=== PATIENT | female | born 1985 | race Caucasian/White ===

== ENCOUNTER 2019-08-03 21:46 | Inpatient (IN) ==
[2019-08-03] MEDS ORDERED: Ondansetron ODT 4 MG TAB.RAPDIS SL ONE (22:17)
[2019-08-03] MEDS ORDERED: Ipratropium/Albuterol Neb 3 ML IH ONE ×2 (22:18→22:43)
[2019-08-03 22:33] LABS: Bilirubin,Urine Small (Negative); Blood,Urine Trace-intact (Negative); Clarity,Urine Clear (Clear); Color,Urine Yellow (Yellow); Glucose,Urine (UA) Normal (Normal); Ketones,Urine Trace mg/dL (Negative); Leukocyte Esterase,Urine Negative (Negative); Nitrite,Urine Negative (Negative); PH,Urine 6.5 pH Units (5.0-8.0); Protein,Urine 100 mg/dL (Neg-Trace); Specific Gravity,Urine 1.015 (1.010-1.025); Urobilinogen,Urine Normal (Normal)
[2019-08-03 22:41] LABS: Bacteria,Urine None Seen per hpf (None-Few); RBC,Urine 0-3 per hpf (0-3); Squamous Epithelial Cell,Urine Few per lpf (None-Few); WBC,Urine 0-3 per hpf (0-3)
[2019-08-03] MEDS ORDERED: cefTRIAXone 1,000 MG in Water for inj. (sterile) 10 ML IVP ONE (22:43)
[2019-08-03] MEDS ORDERED: Azithromycin 250 MG TABLET PO ONE (22:43)
[2019-08-03 23:08] LABS: Basophils % 0.3 %; Eosinophils # 0.1 K/mcL (0.0-0.6); Eosinophils % 0.7 %; Hematocrit 36.4 % (35.3-44.9); Hemoglobin 12.7 g/dL (11.5-15.4); Immature Granulocytes % 0.5 % (0-4); Lymphocytes # 1.6 K/mcL (0.6-4.6); Lymphocytes % 16.6 %; Mean Corpuscular HGB Conc 34.9 g/dL (31.6-35.5); Mean Corpuscular Hemoglobin 31.9 pg (28.0-33.3); Mean Corpuscular Volume 91.5 fL (83.0-100.0); Mean Platelet Volume 10.4 fL (9.4-12.4); Monocytes # 0.8 K/mcL (0.0-1.3); Monocytes % 7.9 %; Neutrophils # 7.2 K/mcL (1.6-8.9); Platelet Count 242 K/mcL (140-400); Red Blood Count 3.98 M/mcL (3.82-4.97); Red Cell Distribution Width 12.2 % (11.5-14.5); White Blood Count 9.8 K/mcL (4.3-11.1)
[2019-08-03] MEDS: 0.9 % Sodium Chloride 1,000 ML IVC SCH (23:11)
[2019-08-03 23:21] LABS: VBG HCO3 29 mEq/L (21-27); VBG PCO2 43 mmHg (41-51); VBG PH 7.43 pH Units (7.32-7.42); VBG PO2 38 mmHg (25-50)
[2019-08-03 23:25] LABS: Albumin 4.2 g/dL (3.5-5.7); Albumin/Globulin Ratio 1.2 (1.1-2.2); Bilirubin,Direct 0.1 mg/dL (0.0-0.2); Bilirubin,Indirect 0.5 mg/dL (0.0-1.0); Bilirubin,Total 0.6 mg/dL (0.3-1.0); Globulin 3.6 g/dL (2.4-3.5); Total Protein 7.8 g/dL (6.4-8.9)
[2019-08-03 23:26] LABS: BUN/Creatinine Ratio 15 (6-26); Blood Urea Nitrogen 11 mg/dL (6-20); Carbon Dioxide 28 mEq/L (23-29); Chloride 93 mEq/L (98-107); Glucose 115 mg/dL (70-105); Osmolality,Calculated 272 (280-300); Potassium 2.9 mEq/L (3.5-5.1); Sodium 131 mEq/L (136-145); eGFR For African Americans > 60 (> 60); eGFR For Non-African Americans > 60 (> 60)
[2019-08-03] MEDS ORDERED: Potassium Effervescent 25 MEQ TABLET.EFF PO ONE (23:28)
[2019-08-04] MEDS: 0.9 % Sodium Chloride 1,000 ML IVC SCH ×3 (00:05→05:16)
[2019-08-04] MEDS ORDERED: Naloxone 0.4 MG/ML INJ IVP PRN (00:49)
[2019-08-04] MEDS ORDERED: Mag Hydrox/Al Hydrox/Simeth 30 ML UDC PO PRN (00:49)
[2019-08-04] MEDS: Venlafaxine XR (24 HR) 150 MG CAP.ER.24H PO SCH ×2 (01:08→21:14)
[2019-08-04] MEDS: Ipratropium/Albuterol Neb 3 ML IH SCH ×6 (03:24→23:45)
[2019-08-04] MEDS: *HR* Enoxaparin 40 MG/0.4 ML SYRINGE SQ SCH (04:02)
[2019-08-04] MEDS: GuaiFENesin Liq 200 MG/10 ML UDC PO SCH ×3 (04:02→21:14)
[2019-08-04] MEDS: Benzonatate 100 MG CAPSULE PO SCH ×3 (04:02→21:14)
[2019-08-04 05:19] LABS: Amphetamine Screen,Urine Negative ng/mL (Cutoff=1000); Barbiturate Screen,Urine Negative ng/mL (Cutoff=200); Benzodiazepines Screen,Urine Negative ng/mL (Cutoff=200); Cannabinoid Screen,Urine Negative ng/mL (Cutoff = 50); Cocaine Screen,Urine Negative ng/mL (Cutoff= 300); Opiate Screen,Urine Negative ng/mL (Cutoff=300); Phencyclidine Screen,Urine Negative ng/mL (Cutoff=25)
[2019-08-04 07:35] LABS: Alanine Aminotransferase 22 Units/L (7-52); Albumin 3.4 g/dL (3.5-5.7); Albumin/Globulin Ratio 1.2 (1.1-2.2); Alkaline Phosphatase 73 Units/L (34-104); Aspartate Amino Transferase 20 Units/L (13-39); BUN/Creatinine Ratio 12 (6-26); Bilirubin,Total 0.4 mg/dL (0.3-1.0); Blood Urea Nitrogen 7 mg/dL (6-20); Calcium 7.6 mg/dL (8.6-10.3); Carbon Dioxide 27 mEq/L (23-29); Chloride 103 mEq/L (98-107); Globulin 2.8 g/dL (2.4-3.5); Glucose 108 mg/dL (70-105); Magnesium 1.9 mg/dL (1.6-2.6); Osmolality,Calculated 279 (280-300); Potassium 3.4 mEq/L (3.5-5.1); Sodium 135 mEq/L (136-145); Total Protein 6.2 g/dL (6.4-8.9); eGFR For African Americans > 60 (> 60); eGFR For Non-African Americans > 60 (> 60)
[2019-08-04 08:04] LABS: Basophils % 0.3 %; Eosinophils % 0.4 %; Hematocrit 30.9 % (35.3-44.9); Hemoglobin 10.6 g/dL (11.5-15.4); Immature Granulocytes % 0.3 % (0-4); Lymphocytes # 0.9 K/mcL (0.6-4.6); Lymphocytes % 13.5 %; Mean Corpuscular HGB Conc 34.3 g/dL (31.6-35.5); Mean Corpuscular Volume 93.4 fL (83.0-100.0); Mean Platelet Volume 10.9 fL (9.4-12.4); Monocytes # 0.6 K/mcL (0.0-1.3); Monocytes % 8.1 %; Neutrophils # 5.3 K/mcL (1.6-8.9); Platelet Count 208 K/mcL (140-400); Red Blood Count 3.31 M/mcL (3.82-4.97); Red Cell Distribution Width 12.7 % (11.5-14.5); Segmented Neutrophils % 77.4 %; White Blood Count 6.9 K/mcL (4.3-11.1)
[2019-08-04] MEDS: Acetaminophen 325 MG TABLET PO PRN ×2 (09:10→19:31)
[2019-08-04] MEDS ORDERED: Isovue-370 500 ML BOTTLE IVP ONE (10:46)
[2019-08-04] MEDS: 0.9 % Sodium Chloride w KCl 20 MEQ/1,000 ML MLS IVC SCH ×2 (11:30→21:13)
[2019-08-04] MEDS ORDERED: cefTRIAXone 1,000 MG in 0.9 % Sodium Chloride Mini Bag 100 ML IVPB SCH (15:00)
[2019-08-04] MEDS ORDERED: Azithromycin 250 MG TABLET PO SCH (15:00)
[2019-08-04] MEDS ORDERED: cefTRIAXone 1,000 MG in Water for inj. (sterile) 10 ML IVPB SCH (16:00)
[2019-08-04] MEDS ORDERED: Ipratropium/Albuterol Neb 3 ML IH SCH (16:00)
[2019-08-04] MEDS: cefTRIAXone 1,000 MG in Water for inj. (sterile) 10 ML IVP SCH (16:44)
[2019-08-04] MEDS: Azithromycin 500 MG in 0.9 % Sodium Chloride 250 ML IVPB SCH (21:13)
[2019-08-04] MEDS: Ondansetron 4 MG/2 ML VIAL IVP PRN (23:35)
[2019-08-05] MEDS: *HR* Enoxaparin 40 MG/0.4 ML SYRINGE SQ SCH (04:42)
[2019-08-05] MEDS: Ipratropium/Albuterol Neb 3 ML IH SCH ×5 (04:54→20:10)
[2019-08-05] MEDS: 0.9 % Sodium Chloride w KCl 20 MEQ/1,000 ML MLS IVC SCH ×2 (07:23→22:15)
[2019-08-05] MEDS: Benzonatate 100 MG CAPSULE PO SCH ×3 (07:27→21:11)
[2019-08-05] MEDS: GuaiFENesin Liq 200 MG/10 ML UDC PO SCH ×3 (07:27→21:10)
[2019-08-05 11:10] LABS: Basophils % 0.2 %; Eosinophils # 0.2 K/mcL (0.0-0.6); Eosinophils % 2.5 %; Hematocrit 30.4 % (35.3-44.9); Hemoglobin 10.1 g/dL (11.5-15.4); Immature Granulocytes % 0.9 % (0-4); Lymphocytes # 1.2 K/mcL (0.6-4.6); Lymphocytes % 18.1 %; Mean Corpuscular HGB Conc 33.2 g/dL (31.6-35.5); Mean Corpuscular Hemoglobin 31.9 pg (28.0-33.3); Mean Corpuscular Volume 95.9 fL (83.0-100.0); Mean Platelet Volume 10.3 fL (9.4-12.4); Monocytes # 0.4 K/mcL (0.0-1.3); Monocytes % 6.5 %; Neutrophils # 4.6 K/mcL (1.6-8.9); Platelet Count 220 K/mcL (140-400); Red Blood Count 3.17 M/mcL (3.82-4.97); Red Cell Distribution Width 13.2 % (11.5-14.5); Segmented Neutrophils % 71.8 %; White Blood Count 6.3 K/mcL (4.3-11.1)
[2019-08-05 11:43] LABS: BUN/Creatinine Ratio 4 (6-26); Blood Urea Nitrogen 2 mg/dL (6-20); Calcium 8.1 mg/dL (8.6-10.3); Carbon Dioxide 27 mEq/L (23-29); Chloride 108 mEq/L (98-107); Glucose 99 mg/dL (70-105); Osmolality,Calculated 288 (280-300); Potassium 4.1 mEq/L (3.5-5.1); Sodium 141 mEq/L (136-145); eGFR For African Americans > 60 (> 60); eGFR For Non-African Americans > 60 (> 60)
[2019-08-05] MEDS: Ondansetron 4 MG/2 ML VIAL IVP PRN (16:43)
[2019-08-05] MEDS: Acetaminophen 325 MG TABLET PO PRN (17:11)
[2019-08-05] MEDS: cefTRIAXone 1,000 MG in Water for inj. (sterile) 10 ML IVP SCH (17:12)
[2019-08-05] MEDS: Ascorbic Acid 500 MG TABLET PO SCH (21:10)
[2019-08-05] MEDS: Lactobacillus 1 EACH CAP.SPRINK PO SCH (21:11)
[2019-08-05] MEDS: Venlafaxine XR (24 HR) 150 MG CAP.ER.24H PO SCH (21:12)
[2019-08-05] MEDS: Azithromycin 500 MG in 0.9 % Sodium Chloride 250 ML IVPB SCH (21:14)
[2019-08-06] MEDS: Ipratropium/Albuterol Neb 3 ML IH SCH ×6 (00:04→20:24)
[2019-08-06] MEDS: Ondansetron 4 MG/2 ML VIAL IVP PRN (00:17)
[2019-08-06] MEDS: *HR* Enoxaparin 40 MG/0.4 ML SYRINGE SQ SCH (04:05)
[2019-08-06 06:28] LABS: Thyroid Stimulating Hormone 0.805 mcIU/mL (0.340-5.600)
[2019-08-06] MEDS ORDERED: 0.9 % Sodium Chloride w KCl 20 MEQ/1,000 ML MLS IVC SCH (08:00)
[2019-08-06] MEDS: GuaiFENesin Liq 200 MG/10 ML UDC PO SCH ×3 (08:38→20:21)
[2019-08-06] MEDS: Lactobacillus 1 EACH CAP.SPRINK PO SCH ×2 (08:39→20:19)
[2019-08-06] MEDS: Benzonatate 100 MG CAPSULE PO SCH ×3 (08:39→20:20)
[2019-08-06] MEDS: Ascorbic Acid 500 MG TABLET PO SCH ×2 (08:39→20:21)
[2019-08-06] MEDS: 0.9 % Sodium Chloride w KCl 20 MEQ/1,000 ML MLS IVC SCH (10:18)
[2019-08-06] MEDS ORDERED: Furosemide 40 MG/4 ML VIAL IVP ONE (11:31)
[2019-08-06] MEDS: Furosemide 40 MG/4 ML VIAL IVP SCH ×2 (12:20→20:18)
[2019-08-06] MEDS: Acetaminophen 325 MG TABLET PO PRN (14:11)
[2019-08-06 14:29] LABS: Basophils % 0.3 %; Eosinophils # 0.1 K/mcL (0.0-0.6); Eosinophils % 2.3 %; Hematocrit 31.6 % (35.3-44.9); Hemoglobin 10.4 g/dL (11.5-15.4); Immature Granulocytes % 1.7 % (0-4); Lymphocytes # 1.4 K/mcL (0.6-4.6); Lymphocytes % 22.4 %; Mean Corpuscular HGB Conc 32.9 g/dL (31.6-35.5); Mean Corpuscular Hemoglobin 32.2 pg (28.0-33.3); Mean Corpuscular Volume 97.8 fL (83.0-100.0); Mean Platelet Volume 10.8 fL (9.4-12.4); Monocytes # 0.3 K/mcL (0.0-1.3); Monocytes % 5.1 %; Neutrophils # 4.1 K/mcL (1.6-8.9); Platelet Count 283 K/mcL (140-400); Red Blood Count 3.23 M/mcL (3.82-4.97); Red Cell Distribution Width 13.1 % (11.5-14.5); Segmented Neutrophils % 68.2 %
[2019-08-06 14:40] LABS: BUN/Creatinine Ratio 7 (6-26); Blood Urea Nitrogen 4 mg/dL (6-20); Calcium 8.2 mg/dL (8.6-10.3); Carbon Dioxide 29 mEq/L (23-29); Chloride 105 mEq/L (98-107); Glucose 116 mg/dL (70-105); Osmolality,Calculated 286 (280-300); Potassium 3.6 mEq/L (3.5-5.1); Sodium 139 mEq/L (136-145); eGFR For African Americans > 60 (> 60); eGFR For Non-African Americans > 60 (> 60)
[2019-08-06] MEDS: cefTRIAXone 1,000 MG in Water for inj. (sterile) 10 ML IVP SCH (17:10)
[2019-08-06] MEDS: Levalbuterol Neb 1.25 MG/3 ML IH SCH (18:08)
[2019-08-06] MEDS: Venlafaxine XR (24 HR) 150 MG CAP.ER.24H PO SCH (20:20)
[2019-08-06] MEDS: Azithromycin 500 MG in 0.9 % Sodium Chloride 250 ML IVPB SCH (20:22)
[2019-08-07] MEDS: Ipratropium/Albuterol Neb 3 ML IH SCH ×6 (00:24→21:43)
[2019-08-07] MEDS: Furosemide 40 MG/4 ML VIAL IVP SCH (04:09)
[2019-08-07 05:19] LABS: Basophils % 0.3 %; Eosinophils # 0.2 K/mcL (0.0-0.6); Eosinophils % 2.1 %; Hematocrit 35.7 % (35.3-44.9); Hemoglobin 12.1 g/dL (11.5-15.4); Immature Granulocytes % 0.9 % (0-4); Lymphocytes # 1.6 K/mcL (0.6-4.6); Lymphocytes % 22.3 %; Mean Corpuscular HGB Conc 33.9 g/dL (31.6-35.5); Mean Corpuscular Hemoglobin 32.3 pg (28.0-33.3); Mean Corpuscular Volume 95.2 fL (83.0-100.0); Mean Platelet Volume 10.1 fL (9.4-12.4); Monocytes # 0.4 K/mcL (0.0-1.3); Monocytes % 5.3 %; Neutrophils # 4.9 K/mcL (1.6-8.9); Platelet Count 327 K/mcL (140-400); Red Blood Count 3.75 M/mcL (3.82-4.97); Segmented Neutrophils % 69.1 %
[2019-08-07 05:33] LABS: BUN/Creatinine Ratio 11 (6-26); Blood Urea Nitrogen 7 mg/dL (6-20); Carbon Dioxide 33 mEq/L (23-29); Chloride 96 mEq/L (98-107); Glucose 99 mg/dL (70-105); Osmolality,Calculated 288 (280-300); Potassium 3.5 mEq/L (3.5-5.1); Sodium 140 mEq/L (136-145); eGFR For African Americans > 60 (> 60); eGFR For Non-African Americans > 60 (> 60)
[2019-08-07 05:34] LABS: Platelet Estimate Normal (Normal)
[2019-08-07] MEDS: Levalbuterol Neb 1.25 MG/3 ML IH SCH ×5 (05:59→23:21)
[2019-08-07] MEDS: *HR* Enoxaparin 40 MG/0.4 ML SYRINGE SQ SCH (06:01)
[2019-08-07] MEDS: Lactobacillus 1 EACH CAP.SPRINK PO SCH ×2 (07:51→21:42)
[2019-08-07] MEDS: Ascorbic Acid 500 MG TABLET PO SCH ×2 (07:51→21:42)
[2019-08-07] MEDS: Benzonatate 100 MG CAPSULE PO SCH ×3 (07:51→21:43)
[2019-08-07] MEDS: GuaiFENesin Liq 200 MG/10 ML UDC PO SCH ×3 (07:51→21:45)
[2019-08-07 09:08] LABS: QuantiFERON Mitogen minus NIL 5.04 IU/mL
[2019-08-07] MEDS: Budesonide/Formoterol 160/4.5 1 PUFF INH IH SCH ×2 (15:15→21:44)
[2019-08-07] MEDS: cefTRIAXone 1,000 MG in Water for inj. (sterile) 10 ML IVP SCH (16:48)
[2019-08-07] MEDS: Venlafaxine XR (24 HR) 150 MG CAP.ER.24H PO SCH (21:42)
[2019-08-07] MEDS: Azithromycin 500 MG in 0.9 % Sodium Chloride 250 ML IVPB SCH (21:46)
[2019-08-08] MEDS: Ipratropium/Albuterol Neb 3 ML IH SCH ×3 (01:51→07:14)
[2019-08-08] MEDS: Levalbuterol Neb 1.25 MG/3 ML IH SCH ×2 (06:02→10:17)
[2019-08-08] MEDS: *HR* Enoxaparin 40 MG/0.4 ML SYRINGE SQ SCH (06:03)
[2019-08-08] MEDS: Budesonide/Formoterol 160/4.5 1 PUFF INH IH SCH (07:14)
[2019-08-08] MEDS: Ascorbic Acid 500 MG TABLET PO SCH (07:51)
[2019-08-08] MEDS: GuaiFENesin Liq 200 MG/10 ML UDC PO SCH (07:51)
[2019-08-08] MEDS: Lactobacillus 1 EACH CAP.SPRINK PO SCH (07:51)
[2019-08-08 08:37] LABS: QuantiFERON NIL 0.21 IU/mL; QuantiFERON-TB Gold In-Tube NEGATIVE
[2019-08-08 10:09] VITALS: BP 121/77
[2019-08-10 08:42] LABS: ANA IgG by ELISA NONE DETECTED (None Detected)
== END 2019-08-08 11:35 | disposition home or self-care (01) | DRG 139 ==
LOC: EMEROOGRE 21:46 → INPGRE 08-04 00:35
PROVIDERS: ADMIT Internal Medicine; ATTEND Internal Medicine